=== PATIENT | male | born 2000 | race African-American/Black ===

== ENCOUNTER 2023-11-04 18:03 | Emergency (ER) | payer BC ==
[2023-11-04] MEDS ORDERED: Ketorolac Tromethamine 30 MG (1 mL) VIAL ONE (19:08)
[2023-11-04 20:15] LABS: Influenza A by NAA Not Detected (NotDetected); Influenza B by NAA Not Detected (NotDetected); SARS-CoV-2 NAA Rapid Test Not Detected (NotDetected)
== END 2023-11-04 20:19 | disposition home or self-care (01) ==
LOC: CSHERS 18:03
DX: B00.1 Herpesviral vesicular dermatitis (principal); B34.9 Viral infection, unspecified; F17.290 Nicotine dependence, other tobacco product, uncomplicated
CPT/HCPCS: 96372; 99283; J1885